=== PATIENT | female | born 1985 | race Caucasian/White ===

== ENCOUNTER 2017-04-15 12:34 | Emergency (ER) | payer MEDICAID ==
[~2017-04-15] VITALS: Ht 167.6 cm; Wt 63.6 kg
[~2017-04-15 12:34] MED LIST: AMBIEN 10MG10 MG PO; ATIVAN 0.50.5 MG/TAB PO; BUSPAR5 MG PO; CELEBREX 200MG200 MG PO; CELEBREX50 MG; CIPRO 500MG TA500 MG PO; CLEOCIN HCL300 MG PO; CYMBALTA 20MG20 MG PO; CYMBALTA 60MG60 MG PO; DEPO-PROVER150 MG/ML IM; DOXYCYCLINE 10100 MG PO; FIORICET 325 MG1 TA1 PO; FLEXERIL 1010 MG/TAB PO; GRALISE600 MG PO; IMITREX 25MG TA25 MG PO; IMITREX100 MG PO; IMITREX50 MG PO; KLONOPIN 1MG1 MG PO; LAXATIVE FOR WOM5 MG PO; LEXAPRO 5MG5 MG; LEXAPRO20 MG PO; LORTAB 5/500 501 TAB PO; METRONIDAZOLE500 MG PO; MIGRAINE MED; MOBIC15 MG PO; MOTRIN 800800 MG/TAB PO; NAPROSYN500 MG PO; NO HOME MEDICATIONS; NORCO 325 MG-51 TAB PO; NORCO 325 MG-7.1 TAB; NORCO 325 MG-7.1 TAB PO; PERCOCET 325 MG1 TA2 PO; PHENERGAN 25 TA25 MG PO; PRENATAL1 TA1 PO; PRENATAL1 TA3 PO; PROMETHAZINE12.5 M5 PO; PROVENTIL0.09 MG/A1 IH; REGLAN 10MG10 MG/TAB PO; RELAFEN750 MG PO; RYBIX ODT50 MG PO; SAVELLA100 MG PO; SAVELLA50 MG PO; TEGRETOL 1100 MG/TAB PO; ULTRAM 50MG TAB50 MG PO; VALIUM 5MG T5 MG/TAB PO; VENTOLIN0.09 MG IH; ZITHROMAX 250M250 MG PO; ZOFRAN 4MG T4 MG/TAB PO; ZOFRAN8 MG PO; [UNRECOGNIZED DRUG - REMARK]
[2017-04-15 12:50] VITALS: BP 127/71; PULSE 94; TEMP 99
[2017-04-15] MEDS ORDERED: CYMBALTA 60MG60 MG PO (13:17)
[2017-04-15] MEDS ORDERED: PROAIR HFA0.09 MG/AC IH (13:17)
[2017-04-15] MEDS ORDERED: TOPAMAX 25MG25 M1 PO ×2 (13:17)
== END 2017-04-15 14:05 | disposition home or self-care (01) ==
LOC: COL.ER 12:34
DX: S90.32XA Contusion of left foot, initial encounter (principal); G43.909 Migraine, unspecified, not intractable, without status migrainosus; F17.210 Nicotine dependence, cigarettes, uncomplicated; W22.8XXA Striking against or struck by other objects, initial encounter

== ENCOUNTER 2017-04-24 08:37 | Emergency (ER) | payer BC, MEDICAID ==
[~2017-04-24] VITALS: Ht 167.6 cm; Wt 63.6 kg
[~2017-04-24 08:37] MED LIST changes: +PROAIR HFA0.09 MG/AC IH; +TOPAMAX 25MG25 M1 PO
[2017-04-24 08:40] VITALS: BP 126/79; PULSE 86; TEMP 99
== END 2017-04-24 09:58 | disposition home or self-care (01) ==
LOC: COL.ER 08:37
DX: S90.122A Contusion of left lesser toe(s) without damage to nail, initial encounter (principal); F31.9 Bipolar disorder, unspecified; F17.210 Nicotine dependence, cigarettes, uncomplicated; Z98.51 Tubal ligation status; W22.03XA Walked into furniture, initial encounter

== ENCOUNTER 2017-10-08 13:22 | Emergency (ER) | payer MEDICAID ==
[~2017-10-08] VITALS: Ht 170.2 cm; Wt 68.2 kg
[2017-10-08 13:24] VITALS: TEMP 98.2
[2017-10-08 16:32] VITALS: BP 130/89; PULSE 90
== END 2017-10-08 16:32 | disposition home or self-care (01) ==
LOC: COL.ER 13:22
DX: G43.909 Migraine, unspecified, not intractable, without status migrainosus (principal); Z98.51 Tubal ligation status
CPT/HCPCS: J1170; J1200; J1885; J2765; J7030

== ENCOUNTER 2017-10-21 17:26 | Emergency (ER) | payer MEDICAID ==
[~2017-10-21] VITALS: Ht 170.2 cm; Wt 65.9 kg
[2017-10-21 17:32] VITALS: TEMP 97.5
[2017-10-21 18:26] LABS: BASO # 0.1 (0.0-0.2); EOS # 0.3 (0.0-0.7); EOS % 3.5 % (0-4.0); GRAN # 4.3 (1.4-6.5); GRAN % 51.4 % (42.2-75.2); HEMOGLOBIN 10.8 g/dl (12.5-16.0); LYMPH # 3.2 (1.2-3.4); LYMPH % 37.5 % (20.0-51.0); MEAN CELL VOLUME 85 fl (80.0-100.0); MEAN CORPUSCULAR HEMOGLOBIN 28 pg (27.0-31.0); MEAN CORPUSCULAR HGB CONC 33 g/dl (33.0-37.0); MEAN PLATELET VOLUME 8.5 fl (7.4-10.4); MONO # 0.5 (0.1-0.6); MONO % 6.4 % (1.7-9.3); PLATELET COUNT 258 K/mm3 (130-400); REDCELL DISTRIBUTION WIDTH-CV 14.8 % (11.5-14.5)
[2017-10-21 18:30] LABS: HEMATOCRIT 33.2 % (37.0-47.0)
[2017-10-21 18:38] LABS: ALBUMIN 3.6 gm/dL (3.5-5.0); BILIRUBIN,TOTAL 0.4 mg/dL (0.0-1.0); CALCIUM 9.2 mg/dL (8.4-10.2); CREATININE, serum 0.53 mg/dL (0.52-1.25); POTASSIUM 3.7 mmol/L (3.4-5.0); TOTAL PROTEIN 7.1 gm/dL (6.4-8.2)
[2017-10-21 19:19] VITALS: BP 130/80; PULSE 87
== END 2017-10-21 19:21 | disposition home or self-care (01) ==
LOC: COL.ER 17:26
PROVIDERS: Physician Assistant
DX: G43.909 Migraine, unspecified, not intractable, without status migrainosus (principal); M79.7 Fibromyalgia; F17.210 Nicotine dependence, cigarettes, uncomplicated
CPT/HCPCS: J1100; J1200; J1885; J2765; J7030

== ENCOUNTER 2017-10-25 11:23 | Emergency (ER) | payer MEDICAID ==
[~2017-10-25] VITALS: Ht 170.2 cm; Wt 63.6 kg
[2017-10-25 11:35] VITALS: BP 157/100; TEMP 98.5
[2017-10-25 13:51] VITALS: PULSE 67
== END 2017-10-25 13:52 | disposition home or self-care (01) ==
LOC: COL.ER 11:23
DX: G43.909 Migraine, unspecified, not intractable, without status migrainosus (principal); F17.210 Nicotine dependence, cigarettes, uncomplicated
CPT/HCPCS: J0595; J0780

== ENCOUNTER 2018-03-23 17:47 | Emergency (ER) | payer MEDICAID ==
[~2018-03-23] VITALS: Ht 170.2 cm; Wt 63.6 kg
[2018-03-23 17:51] VITALS: TEMP 99.2
[2018-03-23] MEDS ORDERED: MAXALT10 MG (18:44)
[2018-03-23] MEDS ORDERED: ZOFRAN 4MG T4 MG/TAB PO (18:44)
[2018-03-23] MEDS ORDERED: DEPAKOTE ER 50500 MG PO (18:45)
[2018-03-23 18:47] LABS: COLLECTION METHOD CLEAN CATCH
[2018-03-23 18:56] LABS: PH 8 (5-8); SQUAMOUS EPITHELIAL 0-2 /hpf; URINE APPEARANCE Clear; URINE BACTERIA Rare /hpf; URINE BILIRUBIN Negative (NEGATIVE); URINE BLOOD 3+ (NEGATIVE); URINE COLOR Yellow; URINE GLUCOSE Negative (NEGATIVE); URINE KETONE Negative (NEGATIVE); URINE LEUKOCYTE ESTERASE Negative (NEGATIVE); URINE NITRATE Negative (NEGATIVE); URINE PROTEIN(semi-quant) 1+ (NEGATIVE); URINE RBC 0-2 /hpf; URINE UROBILINOGEN Negative (NEGATIVE)
[2018-03-23 19:23] LABS: BASO # 0.1 (0.0-0.2); BASO % 1.1 % (0.0-2.0); EOS # 0.1 (0.0-0.7); GRAN # 3.9 (1.4-6.5); GRAN % 54.1 % (42.2-75.2); LYMPH # 2.6 (1.2-3.4); LYMPH % 36.5 % (20.0-51.0); MEAN CELL VOLUME 86 fl (80.0-100.0); MEAN CORPUSCULAR HEMOGLOBIN 29 pg (27.0-31.0); MEAN CORPUSCULAR HGB CONC 34 g/dl (33.0-37.0); MEAN PLATELET VOLUME 8.5 fl (7.4-10.4); MONO # 0.4 (0.1-0.6); PLATELET COUNT 388 K/mm3 (130-400); RED BLOOD COUNT 4.15 M/mm3 (4.10-5.30); REDCELL DISTRIBUTION WIDTH-CV 13.2 % (11.5-14.5)
[2018-03-23 19:24] LABS: HEMATOCRIT 35.6 % (37.0-47.0)
[2018-03-23 19:36] LABS: ALANINE AMINOTRANSFERASE 22 U/L (9-52); ALBUMIN 4.3 gm/dL (3.5-5.0); ALKALINE PHOSPHATASE 70 U/L (50-136); ANION GAP 4 mmol/L (7-16); AST,SGOT 18 U/L (15-37); BILIRUBIN,TOTAL 0.2 mg/dL (0.0-1.0); BLOOD UREA NITROGEN 5 mg/dL (7-17); C-REACTIVE PROTEIN < 0.5 mg/dL (0.0-0.9); CALCIUM 9.1 mg/dL (8.4-10.2); CARBON DIOXIDE 27 mmol/L (22-30); CHLORIDE 109 mmol/L (98-107); CREATINE KINASE 38 U/L (30-135); CREATININE, serum 0.62 mg/dL (0.52-1.25); GLUCOSE 96 mg/dL (74-106); POTASSIUM 3.8 mmol/L (3.4-5.0); SODIUM 141 mmol/L (137-145); TOTAL PROTEIN 7.7 gm/dL (6.4-8.2)
[2018-03-23 20:50] VITALS: BP 115/71; PULSE 75
== END 2018-03-23 20:50 | disposition home or self-care (01) ==
LOC: COL.ER 17:47
PROVIDERS: Nurse Practitioner
DX: M54.5 Low back pain (principal); M25.572 Pain in left ankle and joints of left foot; M25.571 Pain in right ankle and joints of right foot; G89.29 Other chronic pain; J45.909 Unspecified asthma, uncomplicated; M79.7 Fibromyalgia; F31.9 Bipolar disorder, unspecified; G43.909 Migraine, unspecified, not intractable, without status migrainosus; G40.909 Epilepsy, unspecified, not intractable, without status epilepticus; F17.210 Nicotine dependence, cigarettes, uncomplicated; F12.10 Cannabis abuse, uncomplicated; Z79.899 Other long term (current) drug therapy
CPT/HCPCS: J1170; J1885; J2060; J2405; J7030

== ENCOUNTER 2018-04-01 13:20 | Emergency (ER) | payer MEDICAID ==
[~2018-04-01] VITALS: Ht 167.6 cm; Wt 80.3 kg
[~2018-04-01 13:20] MED LIST changes: +DEPAKOTE ER 50500 MG PO; +MAXALT10 MG PO
[2018-04-01 13:22] VITALS: TEMP 98.1
[2018-04-01 16:36] VITALS: BP 106/69; PULSE 72
== END 2018-04-01 16:40 | disposition home or self-care (01) ==
LOC: COL.ER 13:20
DX: G43.909 Migraine, unspecified, not intractable, without status migrainosus (principal); F17.210 Nicotine dependence, cigarettes, uncomplicated; F12.90 Cannabis use, unspecified, uncomplicated; M79.7 Fibromyalgia; Z90.49 Acquired absence of other specified parts of digestive tract; Z98.51 Tubal ligation status
CPT/HCPCS: J1200; J1630; J1885; J2550; J7030

== ENCOUNTER → 2018-04-05 | Outpatient (CLI) | payer MEDICAID ==
[~2018-04-05] MED LIST changes: +NATURAL MAGNES200 MG PO; +PROFERRIN-FORTE1 TAB PO
== END ==
LOC: COL.RAD 08:27
DX: E34.8 Other specified endocrine disorders (principal); R41.3 Other amnesia
CPT/HCPCS: A9585

== ENCOUNTER 2018-04-07 07:36 | Emergency (ER) | payer MEDICAID ==
[~2018-04-07] VITALS: Ht 167.6 cm; Wt 72.7 kg
[~2018-04-07 07:36] MED LIST changes: -NATURAL MAGNES200 MG PO; -PROFERRIN-FORTE1 TAB PO
[2018-04-07 07:40] VITALS: TEMP 97.3
[2018-04-07] MEDS ORDERED: PROFERRIN-FORTE1 TAB PO (07:50)
[2018-04-07] MEDS ORDERED: NATURAL MAGNES200 MG PO (07:50)
[2018-04-07 09:30] LABS: COLLECTION METHOD CLEAN CATCH
[2018-04-07 09:37] LABS: PH 8 (5-8); SQUAMOUS EPITHELIAL 0-2 /hpf; URINE APPEARANCE Clear; URINE BACTERIA None Seen /hpf; URINE BILIRUBIN Negative (NEGATIVE); URINE BLOOD 1+ (NEGATIVE); URINE COLOR Straw; URINE GLUCOSE Negative (NEGATIVE); URINE KETONE Negative (NEGATIVE); URINE LEUKOCYTE ESTERASE Negative (NEGATIVE); URINE NITRATE Negative (NEGATIVE); URINE PROTEIN(semi-quant) Negative (NEGATIVE); URINE RBC 0-2 /hpf; URINE UROBILINOGEN Negative (NEGATIVE)
[2018-04-07 11:26] VITALS: BP 135/87; PULSE 88
== END 2018-04-07 11:34 | disposition home or self-care (01) ==
LOC: COL.ER 07:36
PROVIDERS: Emergency Medicine
DX: G89.29 Other chronic pain (principal); M54.5 Low back pain; M79.7 Fibromyalgia; Z98.51 Tubal ligation status; Z90.49 Acquired absence of other specified parts of digestive tract
CPT/HCPCS: J1170; J1885; J2060; J7030

== ENCOUNTER 2018-04-11 17:14 | Emergency (ER) | payer MEDICAID ==
[~2018-04-11] VITALS: Ht 167.6 cm; Wt 81.8 kg
[~2018-04-11 17:14] MED LIST changes: +NATURAL MAGNES200 MG PO; +PROFERRIN-FORTE1 TAB PO
[2018-04-11 18:10] LABS: BASO # 0.1 (0.0-0.2); BASO % 0.9 % (0.0-2.0); EOS # 0.1 (0.0-0.7); EOS % 1.5 % (0-4.0); GRAN # 4.9 (1.4-6.5); GRAN % 63.2 % (42.2-75.2); HEMOGLOBIN 11.7 g/dl (12.5-16.0); LYMPH # 2.2 (1.2-3.4); LYMPH % 27.7 % (20.0-51.0); MEAN CELL VOLUME 87 fl (80.0-100.0); MEAN CORPUSCULAR HEMOGLOBIN 29 pg (27.0-31.0); MEAN CORPUSCULAR HGB CONC 33 g/dl (33.0-37.0); MEAN PLATELET VOLUME 8.8 fl (7.4-10.4); MONO # 0.5 (0.1-0.6); MONO % 6.6 % (1.7-9.3); PLATELET COUNT 331 K/mm3 (130-400); RED BLOOD COUNT 4.09 M/mm3 (4.10-5.30); REDCELL DISTRIBUTION WIDTH-CV 13.3 % (11.5-14.5)
[2018-04-11 18:13] LABS: HEMATOCRIT 35.4 % (37.0-47.0)
[2018-04-11 18:21] LABS: ALANINE AMINOTRANSFERASE 40 U/L (9-52); ALBUMIN 4.2 gm/dL (3.5-5.0); ALKALINE PHOSPHATASE 86 U/L (50-136); ANION GAP 6 mmol/L (7-16); AST,SGOT 28 U/L (15-37); BILIRUBIN,TOTAL 0.4 mg/dL (0.0-1.0); BLOOD UREA NITROGEN 4 mg/dL (7-17); CALCIUM 9.6 mg/dL (8.4-10.2); CARBON DIOXIDE 27 mmol/L (22-30); CHLORIDE 108 mmol/L (98-107); CREATININE, serum 0.56 mg/dL (0.52-1.25); GLUCOSE 99 mg/dL (74-106); SODIUM 140 mmol/L (137-145); TOTAL PROTEIN 7.6 gm/dL (6.4-8.2)
[2018-04-11 18:25] LABS: C-REACTIVE PROTEIN < 0.5 mg/dL (0.0-0.9)
[2018-04-11 19:53] VITALS: BP 163/107; PULSE 80; TEMP 97.9
== END 2018-04-11 20:01 | disposition home or self-care (01) ==
LOC: COL.ER 17:14
PROVIDERS: Nurse Practitioner
DX: S09.90XA Unspecified injury of head, initial encounter (principal); G43.909 Migraine, unspecified, not intractable, without status migrainosus; F31.9 Bipolar disorder, unspecified; J45.909 Unspecified asthma, uncomplicated; M79.7 Fibromyalgia; F17.210 Nicotine dependence, cigarettes, uncomplicated; F12.90 Cannabis use, unspecified, uncomplicated; W19.XXXA Unspecified fall, initial encounter
CPT/HCPCS: J1200; J1885; J2060; J2765; J7030

== ENCOUNTER 2018-04-16 13:18 | Emergency (ER) | payer MEDICAID ==
[~2018-04-16] VITALS: Ht 167.6 cm; Wt 74.8 kg
[2018-04-16 13:23] VITALS: TEMP 98.8
[2018-04-16] MEDS ORDERED: TYLENOL 325MG325 MG PO (13:28)
[2018-04-16] MEDS ORDERED: BENADRYL50 MG PO (13:29)
[2018-04-16] MEDS ORDERED: MOTRIN 200200 MG/TAB PO (13:29)
[2018-04-16 16:05] VITALS: BP 151/89; PULSE 89
== END 2018-04-16 16:10 | disposition home or self-care (01) ==
LOC: COL.ER 13:18
DX: G43.909 Migraine, unspecified, not intractable, without status migrainosus (principal); M54.32 Sciatica, left side; M54.16 Radiculopathy, lumbar region; M79.7 Fibromyalgia; F17.210 Nicotine dependence, cigarettes, uncomplicated; F12.90 Cannabis use, unspecified, uncomplicated; F31.9 Bipolar disorder, unspecified
CPT/HCPCS: J1170; J1630; J1885

== ENCOUNTER 2018-05-12 01:05 | Emergency (ER) | payer MEDICAID ==
[~2018-05-12] VITALS: Ht 170.2 cm; Wt 68.2 kg
[~2018-05-12 01:05] MED LIST changes: +BENADRYL50 MG PO; +MOTRIN 200200 MG/TAB PO; +TYLENOL 325MG325 MG PO
[2018-05-12 01:13] VITALS: TEMP 98
[2018-05-12] MEDS ORDERED: INDERAL40 MG PO (04:39)
[2018-05-12 04:42] VITALS: BP 174/98; PULSE 86
== END 2018-05-12 04:54 | disposition home or self-care (01) ==
LOC: COL.ER 01:05
DX: G43.909 Migraine, unspecified, not intractable, without status migrainosus (principal); R03.0 Elevated blood-pressure reading, without diagnosis of hypertension; Z98.51 Tubal ligation status
CPT/HCPCS: J0780; J1200; J1885; J7030

== ENCOUNTER 2018-05-19 10:00 | Emergency (ER) | payer MEDICAID ==
[~2018-05-19] VITALS: Ht 167.6 cm; Wt 73.6 kg
[~2018-05-19 10:00] MED LIST changes: +INDERAL40 MG PO
[2018-05-19 10:06] VITALS: TEMP 98.6
[2018-05-19 10:51] LABS: BASO # 0.1 (0.0-0.2); BASO % 0.8 % (0.0-2.0); EOS # 0.1 (0.0-0.7); EOS % 1.2 % (0-4.0); GRAN # 5.8 (1.4-6.5); GRAN % 69.8 % (42.2-75.2); HEMATOCRIT 38.7 % (37.0-47.0); HEMOGLOBIN 12.7 g/dl (12.5-16.0); LYMPH # 1.9 (1.2-3.4); LYMPH % 22.6 % (20.0-51.0); MEAN CELL VOLUME 88 fl (80.0-100.0); MEAN CORPUSCULAR HEMOGLOBIN 29 pg (27.0-31.0); MEAN CORPUSCULAR HGB CONC 33 g/dl (33.0-37.0); MEAN PLATELET VOLUME 8.5 fl (7.4-10.4); MONO # 0.5 (0.1-0.6); MONO % 5.4 % (1.7-9.3); PLATELET COUNT 358 K/mm3 (130-400); RED BLOOD COUNT 4.42 M/mm3 (4.10-5.30); REDCELL DISTRIBUTION WIDTH-CV 13.7 % (11.5-14.5)
[2018-05-19 10:57] LABS: ALANINE AMINOTRANSFERASE 10 U/L (9-52); ALBUMIN 4.3 gm/dL (3.5-5.0); ALKALINE PHOSPHATASE 81 U/L (50-136); ANION GAP 5 mmol/L (7-16); AST,SGOT 17 U/L (15-37); BILIRUBIN,TOTAL 0.4 mg/dL (0.0-1.0); BLOOD UREA NITROGEN 4 mg/dL (7-17); CALCIUM 9.6 mg/dL (8.4-10.2); CARBON DIOXIDE 29 mmol/L (22-30); CHLORIDE 108 mmol/L (98-107); CREATININE, serum 0.53 mg/dL (0.52-1.25); GLUCOSE 115 mg/dL (74-106); POTASSIUM 3.8 mmol/L (3.4-5.0); SODIUM 141 mmol/L (137-145); TOTAL PROTEIN 7.7 gm/dL (6.4-8.2)
[2018-05-19 11:13] LABS: TROPONIN-I < 0.012 ng/mL (0.000-0.034)
[2018-05-19 11:45] VITALS: BP 159/94; PULSE 72
[2018-05-19] MEDS ORDERED: HCTZ12.5TAB PO (11:45)
== END 2018-05-19 12:14 | disposition home or self-care (01) ==
LOC: COL.ER 10:00
PROVIDERS: Nurse Practitioner
DX: I10 Essential (primary) hypertension (principal); R07.89 Other chest pain; J45.909 Unspecified asthma, uncomplicated; G43.909 Migraine, unspecified, not intractable, without status migrainosus; F31.9 Bipolar disorder, unspecified; Z90.49 Acquired absence of other specified parts of digestive tract; Z98.51 Tubal ligation status; F17.210 Nicotine dependence, cigarettes, uncomplicated; F12.90 Cannabis use, unspecified, uncomplicated

== ENCOUNTER → 2018-05-23 | Outpatient (CLI) | payer MEDICAID ==
[~2018-05-23] MED LIST changes: +HCTZ12.5TAB PO
== END ==
LOC: COL.RAD 11:54
DX: M54.41 Lumbago with sciatica, right side (principal); M54.42 Lumbago with sciatica, left side; N39.42 Incontinence without sensory awareness

== ENCOUNTER 2018-09-30 20:06 | Emergency (ER) | payer MEDICAID ==
[~2018-09-30] VITALS: Ht 162.6 cm; Wt 82.7 kg
[2018-09-30 20:09] VITALS: TEMP 97
[2018-09-30 22:27] VITALS: BP 121/97; PULSE 85
== END 2018-09-30 22:27 | disposition home or self-care (01) ==
LOC: COL.ER 20:06
DX: G43.909 Migraine, unspecified, not intractable, without status migrainosus (principal); I10 Essential (primary) hypertension; M79.7 Fibromyalgia; F17.210 Nicotine dependence, cigarettes, uncomplicated
CPT/HCPCS: J1170; J1200; J1885; J2060; J2405

== ENCOUNTER 2019-02-19 19:55 | Emergency (ER) | payer SELFPAY ==
[~2019-02-19] VITALS: Ht 167.6 cm; Wt 63.6 kg
[2019-02-19 19:59] VITALS: TEMP 98.1
[2019-02-19 20:57] LABS: COLLECTION METHOD CLEAN CATCH
[2019-02-19 21:04] LABS: PH 7 (5-8); SQUAMOUS EPITHELIAL 0-2 /hpf; URINE APPEARANCE Clear; URINE BACTERIA Rare /hpf; URINE BILIRUBIN Negative (NEGATIVE); URINE BLOOD Negative (NEGATIVE); URINE COLOR Straw; URINE GLUCOSE Negative (NEGATIVE); URINE KETONE Negative (NEGATIVE); URINE LEUKOCYTE ESTERASE Negative (NEGATIVE); URINE NITRATE Negative (NEGATIVE); URINE PROTEIN(semi-quant) Negative (NEGATIVE); URINE RBC 0-2 /hpf; URINE UROBILINOGEN Negative (NEGATIVE)
[2019-02-19 21:10] LABS: TRICYCLIC ANTIDEPRESS URINE NEGATIVE
[2019-02-19 22:26] VITALS: BP 110/81; PULSE 82
== END 2019-02-19 22:28 | disposition home or self-care (01) ==
LOC: COL.ER 19:55
PROVIDERS: Nurse Practitioner
DX: S16.1XXA Strain of muscle, fascia and tendon at neck level, initial encounter (principal); S39.012A Strain of muscle, fascia and tendon of lower back, initial encounter; S20.219A Contusion of unspecified front wall of thorax, initial encounter; J45.909 Unspecified asthma, uncomplicated; I10 Essential (primary) hypertension; F31.9 Bipolar disorder, unspecified; F17.210 Nicotine dependence, cigarettes, uncomplicated; Z79.1 Long term (current) use of non-steroidal anti-inflammatories (NSAID); W10.9XXA Fall (on) (from) unspecified stairs and steps, initial encounter; Y92.009 Unspecified place in unspecified non-institutional (private) residence as the place of occurrence of the external cause
CPT/HCPCS: J1885; J2360

== ENCOUNTER 2019-03-02 00:58 | Emergency (ER) | payer SELFPAY ==
[~2019-03-02] VITALS: Ht 157.5 cm; Wt 81.8 kg
[2019-03-02 01:02] VITALS: TEMP 97.8
[2019-03-02 01:16] LABS: BASO # 0.1 (0.0-0.2); BASO % 1.2 % (0.0-2.0); EOS # 0.5 (0.0-0.7); EOS % 5.4 % (0-4.0); GRAN # 3.2 (1.4-6.5); GRAN % 38.4 % (42.2-75.2); HEMATOCRIT 35.3 % (37.0-47.0); HEMOGLOBIN 11.6 g/dl (12.5-16.0); LYMPH # 3.9 (1.2-3.4); LYMPH % 47.3 % (20.0-51.0); MEAN CELL VOLUME 89 fl (80.0-100.0); MEAN CORPUSCULAR HEMOGLOBIN 29 pg (27.0-31.0); MEAN CORPUSCULAR HGB CONC 33 g/dl (33.0-37.0); MEAN PLATELET VOLUME 8.6 fl (7.4-10.4); MONO # 0.6 (0.1-0.6); MONO % 7.3 % (1.7-9.3); PLATELET COUNT 353 K/mm3 (130-400); RED BLOOD COUNT 3.96 M/mm3 (4.10-5.30); REDCELL DISTRIBUTION WIDTH-CV 11.8 % (11.5-14.5)
[2019-03-02 01:27] LABS: ACETAMINOPHEN 16 ug/mL (10-30); ALANINE AMINOTRANSFERASE 15 U/L (9-52); ALBUMIN 4.3 gm/dL (3.5-5.0); ALCOHOL(ethanol),MEDICAL < 10 mg/dL; ALKALINE PHOSPHATASE 73 U/L (50-136); ANION GAP 11 mmol/L (7-16); AST,SGOT 22 U/L (15-37); BILIRUBIN,TOTAL 0.2 mg/dL (0.0-1.0); BLOOD UREA NITROGEN 6 mg/dL (7-17); CARBON DIOXIDE 27 mmol/L (22-30); CHLORIDE 101 mmol/L (98-107); CREATININE, serum 0.66 (0.52-1.25); GLUCOSE 110 mg/dL (74-106); SALICYLATE < 1.0 mg/dL; SODIUM 139 mmol/L (137-145); TOTAL PROTEIN 7.6 gm/dL (6.4-8.2)
[2019-03-02 04:15] VITALS: BP 106/76; PULSE 72
[2019-03-03] MEDS ORDERED: NORVASC 5MG5 MG/TAB PO (19:27)
[2019-03-03] MEDS ORDERED: PAMELOR 25MG25 MG PO (19:27)
[2019-03-03] MEDS ORDERED: NORCO 325 MG-51 TAB PO (21:25)
[2019-03-03] MEDS ORDERED: FLEXERIL5 MG PO (21:25)
== END 2019-03-02 04:15 | disposition home or self-care (01) ==
LOC: COL.ER 00:58
PROVIDERS: Emergency Medicine
DX: E87.6 Hypokalemia (principal); F32.9 Major depressive disorder, single episode, unspecified; Y04.0XXA Assault by unarmed brawl or fight, initial encounter
CPT/HCPCS: J7030; Q9967

== ENCOUNTER 2019-03-03 19:13 | Emergency (ER) | payer SELFPAY ==
[~2019-03-03] VITALS: Ht 167.6 cm; Wt 63.6 kg
[2019-03-03 19:13] VITALS: TEMP 98.3
[2019-03-03] MEDS ORDERED: PAMELOR 25MG25 MG PO (19:27)
[2019-03-03] MEDS ORDERED: NORVASC 5MG5 MG/TAB PO (19:27)
[2019-03-03 20:42] LABS: COLLECTION METHOD CLEAN CATCH
[2019-03-03 20:52] LABS: MUCOUS Present /lpf; PH 7 (5-8); URINE APPEARANCE Cloudy; URINE BACTERIA Rare /hpf; URINE BILIRUBIN Negative (NEGATIVE); URINE BLOOD 3+ (NEGATIVE); URINE COLOR Yellow; URINE GLUCOSE Negative (NEGATIVE); URINE KETONE Negative (NEGATIVE); URINE LEUKOCYTE ESTERASE Trace (NEGATIVE); URINE NITRATE Negative (NEGATIVE); URINE PROTEIN(semi-quant) Negative (NEGATIVE); URINE UROBILINOGEN Negative (NEGATIVE)
[2019-03-03] MEDS ORDERED: NORCO 325 MG-51 TAB PO (21:25)
[2019-03-03] MEDS ORDERED: FLEXERIL5 MG PO (21:25)
[2019-03-03 21:31] VITALS: BP 112/74; PULSE 65
== END 2019-03-03 21:35 | disposition home or self-care (01) ==
LOC: COL.ER 19:13
PROVIDERS: Emergency Medicine
DX: M54.5 Low back pain (principal); M79.7 Fibromyalgia; G40.909 Epilepsy, unspecified, not intractable, without status epilepticus; F17.210 Nicotine dependence, cigarettes, uncomplicated; W19.XXXA Unspecified fall, initial encounter; Z98.51 Tubal ligation status
CPT/HCPCS: J1885; J2405; J3010

== ENCOUNTER 2019-03-05 22:58 | Emergency (ER) | payer SELFPAY ==
[~2019-03-05] VITALS: Ht 167.6 cm; Wt 63.6 kg
[~2019-03-05 22:58] MED LIST changes: +FLEXERIL5 MG PO; +NORVASC 5MG5 MG/TAB PO; +PAMELOR 25MG25 MG PO
[2019-03-05 22:59] VITALS: BP 128/94; TEMP 97.9
[2019-03-06 00:57] VITALS: PULSE 68
== END 2019-03-06 00:57 | disposition home or self-care (01) ==
LOC: COL.ER 22:58
DX: S16.1XXA Strain of muscle, fascia and tendon at neck level, initial encounter (principal); M25.562 Pain in left knee; I10 Essential (primary) hypertension; F17.210 Nicotine dependence, cigarettes, uncomplicated; M79.7 Fibromyalgia; W10.9XXA Fall (on) (from) unspecified stairs and steps, initial encounter; Y92.009 Unspecified place in unspecified non-institutional (private) residence as the place of occurrence of the external cause

== ENCOUNTER 2019-04-04 23:51 | Emergency (ER) | payer SELFPAY ==
[~2019-04-04] VITALS: Ht 167.6 cm; Wt 59.1 kg
[2019-04-04 23:52] VITALS: TEMP 97.6
[2019-04-05 01:46] LABS: COLLECTION METHOD CLEAN CATCH
[2019-04-05 01:55] LABS: AMORPHOUS CRYSTAL Present /uL; MUCOUS Present /lpf; PH 5 (5-8); SQUAMOUS EPITHELIAL 0-2 /hpf; URINE APPEARANCE Hazy; URINE BACTERIA Rare /hpf; URINE BILIRUBIN Negative (NEGATIVE); URINE BLOOD 1+ (NEGATIVE); URINE COLOR Yellow; URINE GLUCOSE Negative (NEGATIVE); URINE KETONE Negative (NEGATIVE); URINE LEUKOCYTE ESTERASE Negative (NEGATIVE); URINE NITRATE Positive (NEGATIVE); URINE PROTEIN(semi-quant) Negative (NEGATIVE); URINE RBC 0-2 /hpf; URINE UROBILINOGEN Negative (NEGATIVE)
[2019-04-05 02:09] VITALS: BP 112/61; PULSE 73
[2019-04-06] MEDS ORDERED: CEPHALEXIN500 M1 PO (09:08)
== END 2019-04-05 02:10 | disposition home or self-care (01) ==
LOC: COL.ER 23:51
PROVIDERS: Emergency Medicine
DX: S80.02XA Contusion of left knee, initial encounter (principal); M79.7 Fibromyalgia; F17.210 Nicotine dependence, cigarettes, uncomplicated; Z98.51 Tubal ligation status; W01.0XXA Fall on same level from slipping, tripping and stumbling without subsequent striking against object, initial encounter; Y92.009 Unspecified place in unspecified non-institutional (private) residence as the place of occurrence of the external cause
CPT/HCPCS: J1885

== ENCOUNTER 2019-09-23 18:41 | Emergency (ER) | payer MEDICAID ==
[~2019-09-23] VITALS: Ht 167.6 cm; Wt 63.6 kg
[~2019-09-23 18:41] MED LIST changes: +CEPHALEXIN500 M1 PO
[2019-09-23 18:45] VITALS: TEMP 98.1
[2019-09-23] MEDS ORDERED: FLEXERIL 1010 MG/TAB PO (19:23)
[2019-09-23] MEDS ORDERED: MOTRIN 600600 MG/TAB PO (19:34)
[2019-09-23 19:45] VITALS: BP 132/70; PULSE 68
--- NOTE | 2019-09-24 08:49 | NUR ---
BETSY received a consult for patient at 1905. The patient discharged from the ED. BETSY attempted to contact the patient to follow up. BETSY left her a voicemail.
== END 2019-09-23 19:53 | disposition home or self-care (01) ==
LOC: COL.ER 18:41
DX: M25.512 Pain in left shoulder (principal); F31.9 Bipolar disorder, unspecified; G43.909 Migraine, unspecified, not intractable, without status migrainosus; F17.210 Nicotine dependence, cigarettes, uncomplicated; W01.198A Fall on same level from slipping, tripping and stumbling with subsequent striking against other object, initial encounter; Y92.009 Unspecified place in unspecified non-institutional (private) residence as the place of occurrence of the external cause
CPT/HCPCS: J1885

== ENCOUNTER 2019-10-20 19:21 | Emergency (ER) | payer MEDICAID ==
[~2019-10-20] VITALS: Ht 167.6 cm; Wt 63.6 kg
[~2019-10-20 19:21] MED LIST changes: +MOTRIN 600600 MG/TAB PO
[2019-10-20 19:29] VITALS: TEMP 98
[2019-10-20] MEDS ORDERED: NORVASC 5MG5 MG/TAB PO (20:56)
[2019-10-20] MEDS ORDERED: IBU800 M1 PO (21:16)
[2019-10-20 21:30] VITALS: BP 146/73; PULSE 73
== END 2019-10-20 21:30 | disposition home or self-care (01) ==
LOC: COL.ER 19:21
DX: S46.012A Strain of muscle(s) and tendon(s) of the rotator cuff of left shoulder, initial encounter (principal); I10 Essential (primary) hypertension; F17.210 Nicotine dependence, cigarettes, uncomplicated; Z79.899 Other long term (current) drug therapy; X50.0XXA Overexertion from strenuous movement or load, initial encounter
CPT/HCPCS: J2550; J3010

== ENCOUNTER 2019-11-22 02:33 | Emergency (ER) | payer MEDICAID ==
[~2019-11-22] VITALS: Ht 167.6 cm; Wt 63.6 kg
[~2019-11-22 02:33] MED LIST changes: +IBU800 M1 PO
[2019-11-22 04:49] VITALS: BP 127/74; PULSE 75; TEMP 97.8
[2019-11-23] MEDS ORDERED: IBU400 MG PO (22:45)
== END 2019-11-22 04:52 | disposition home or self-care (01) ==
LOC: COL.ER 02:33
DX: M25.512 Pain in left shoulder (principal); M79.7 Fibromyalgia; F17.210 Nicotine dependence, cigarettes, uncomplicated; W11.XXXA Fall on and from ladder, initial encounter; Y92.009 Unspecified place in unspecified non-institutional (private) residence as the place of occurrence of the external cause
CPT/HCPCS: J1885

== ENCOUNTER 2019-11-23 22:16 | Emergency (ER) | payer MEDICAID ==
[~2019-11-23] VITALS: Ht 167.6 cm; Wt 63.6 kg
[2019-11-23] MEDS ORDERED: IBU400 MG PO (22:45)
[2019-11-23 23:19] VITALS: BP 118/64; PULSE 81; TEMP 97.5
== END 2019-11-23 23:22 | disposition home or self-care (01) ==
LOC: COL.ER 22:16
DX: M54.5 Low back pain (principal); M79.7 Fibromyalgia; M25.512 Pain in left shoulder; G89.29 Other chronic pain; F17.210 Nicotine dependence, cigarettes, uncomplicated; Z79.1 Long term (current) use of non-steroidal anti-inflammatories (NSAID); W10.9XXA Fall (on) (from) unspecified stairs and steps, initial encounter

== ENCOUNTER 2019-12-05 00:38 | Emergency (ER) | payer MEDICAID ==
[~2019-12-05] VITALS: Ht 167.6 cm; Wt 63.6 kg
[~2019-12-05 00:38] MED LIST changes: +IBU400 MG PO
[2019-12-05 00:46] VITALS: BP 121/91; TEMP 98.1
[2019-12-05] MEDS ORDERED: MEDROL 4MG DOSPA4 MG PO (03:19)
[2019-12-05 03:31] VITALS: PULSE 9
== END 2019-12-05 03:38 | disposition home or self-care (01) ==
LOC: COL.ER 00:38
DX: M54.42 Lumbago with sciatica, left side (principal); M25.512 Pain in left shoulder; G89.29 Other chronic pain; F41.9 Anxiety disorder, unspecified; F31.9 Bipolar disorder, unspecified; R40.2412 Glasgow coma scale score 13-15, at arrival to emergency department; W18.2XXA Fall in (into) shower or empty bathtub, initial encounter; Y92.009 Unspecified place in unspecified non-institutional (private) residence as the place of occurrence of the external cause
CPT/HCPCS: J1885; J7512

== ENCOUNTER 2020-01-16 02:21 | Emergency (ER) | payer MEDICAID ==
[~2020-01-16] VITALS: Ht 170.2 cm; Wt 61.4 kg
[~2020-01-16 02:21] MED LIST changes: +MEDROL 4MG DOSPA4 MG PO
[2020-01-16 02:40] VITALS: BP 135/88; TEMP 97.4
[2020-01-16 04:10] VITALS: PULSE 78
== END 2020-01-16 04:10 | disposition home or self-care (01) ==
LOC: COL.ER 02:21
DX: R51 Headache (principal); Z86.69 Personal history of other diseases of the nervous system and sense organs
CPT/HCPCS: J1200; J1790; J1885; J7030

== ENCOUNTER 2020-06-14 04:15 | Emergency (ER) | payer SELFPAY ==
[~2020-06-14] VITALS: Ht 167.6 cm; Wt 59.1 kg
[2020-06-14 04:19] VITALS: TEMP 97.3
[2020-06-14] MEDS ORDERED: NORCO 325 MG-51 TAB PO (04:50)
[2020-06-14] MEDS ORDERED: MEDROL 4MG DOSPA4 MG PO (04:50)
[2020-06-14 05:02] VITALS: BP 116/70; PULSE 78
== END 2020-06-14 05:02 | disposition home or self-care (01) ==
LOC: COL.ER 04:15
DX: M77.8 Other enthesopathies, not elsewhere classified (principal); F17.200 Nicotine dependence, unspecified, uncomplicated; Z90.49 Acquired absence of other specified parts of digestive tract; Z88.6 Allergy status to analgesic agent; Z91.040 Latex allergy status
CPT/HCPCS: J7512

== ENCOUNTER 2020-06-26 14:01 | Emergency (ER) | payer SELFPAY ==
[~2020-06-26] VITALS: Ht 170.2 cm; Wt 63.6 kg
[2020-06-26 14:02] VITALS: TEMP 98.3
[2020-06-26 14:34] LABS: BASO # 0.1 (0.0-0.2); BASO % 0.9 % (0.0-2.0); EOS # 0.3 (0.0-0.7); EOS % 2.8 % (0-4.0); GRAN # 4.8 (1.4-6.5); GRAN % 50.2 % (42.2-75.2); LYMPH # 3.7 (1.2-3.4); LYMPH % 38.7 % (20.0-51.0); MEAN CELL VOLUME 79 fl (80.0-100.0); MEAN CORPUSCULAR HGB CONC 29 g/dl (33.0-37.0); MEAN PLATELET VOLUME 8.1 fl (7.4-10.4); MONO # 0.7 (0.1-0.6); MONO % 6.9 % (1.7-9.3); PLATELET COUNT 460 K/mm3 (130-400); RED BLOOD COUNT 4.29 M/mm3 (4.10-5.30); REDCELL DISTRIBUTION WIDTH-CV 19.7 % (11.5-14.5)
[2020-06-26 14:38] LABS: PROTHROMBIN TIME 11.6 SECONDS (9.7-12.8)
[2020-06-26 14:41] LABS: ALANINE AMINOTRANSFERASE 21 U/L (4-34); ALBUMIN 4.6 gm/dL (3.5-5.0); ALKALINE PHOSPHATASE 67 U/L (50-136); ANION GAP 6 mmol/L (7-16); AST,SGOT 27 U/L (15-37); BILIRUBIN,TOTAL 0.3 mg/dL (0.0-1.0); BLOOD UREA NITROGEN 8 mg/dL (7-17); CALCIUM 9.5 mg/dL (8.4-10.2); CARBON DIOXIDE 29 mmol/L (22-30); CHLORIDE 102 mmol/L (98-107); CREATININE, serum 0.66 (0.52-1.25); GLUCOSE 102 mg/dL (74-106); PARTIAL THROMBOPLASTIN TIME 27.1 SECONDS (26.0-37.0); POTASSIUM 3.9 mmol/L (3.4-5.0); SODIUM 137 mmol/L (137-145); TOTAL PROTEIN 8.1 gm/dL (6.4-8.2)
[2020-06-26 14:42] LABS: HEMATOCRIT 33.7 % (37.0-47.0); HEMOGLOBIN 9.8 g/dl (12.5-16.0); MEAN CORPUSCULAR HEMOGLOBIN 23 pg (27.0-31.0)
[2020-06-26 14:52] LABS: TROPONIN-I < 0.012 ng/mL (0.000-0.035)
[2020-06-26 18:19] VITALS: BP 1423/97; PULSE 82
== END 2020-06-26 18:21 | disposition home or self-care (01) ==
LOC: COL.ER 14:01
PROVIDERS: Family Medicine
DX: F41.0 Panic disorder [episodic paroxysmal anxiety] (principal); R51.9 Headache, unspecified; R07.9 Chest pain, unspecified; G43.909 Migraine, unspecified, not intractable, without status migrainosus; M79.7 Fibromyalgia; F17.210 Nicotine dependence, cigarettes, uncomplicated; Z88.6 Allergy status to analgesic agent
CPT/HCPCS: J0780; J1100; J1885

== ENCOUNTER 2020-06-27 21:25 | Emergency (ER) | payer SELFPAY ==
[~2020-06-27] VITALS: Ht 170.2 cm; Wt 59.1 kg
[2020-06-27 21:45] VITALS: BP 114/73; PULSE 93; TEMP 98.1
[2020-06-28] MEDS ORDERED: MEDROL 4MG DOSPA4 MG PO (04:38)
[2020-06-28] MEDS ORDERED: NAPROSYN500 MG PO (04:38)
== END 2020-06-27 22:15 | disposition left against medical advice (07) ==
LOC: COL.ER 21:25
DX: M25.512 Pain in left shoulder (principal)

== ENCOUNTER 2020-06-28 02:18 | Emergency (ER) | payer SELFPAY ==
[~2020-06-28] VITALS: Ht 170.2 cm; Wt 65.9 kg
[2020-06-28 02:28] VITALS: TEMP 98
[2020-06-28 02:50] LABS: BASO # 0.1 (0.0-0.2); BASO % 0.6 % (0.0-2.0); EOS # 0.1 (0.0-0.7); GRAN # 5.7 (1.4-6.5); LYMPH # 3.7 (1.2-3.4); LYMPH % 35.4 % (20.0-51.0); MEAN CELL VOLUME 80 fl (80.0-100.0); MEAN CORPUSCULAR HGB CONC 29 g/dl (33.0-37.0); MEAN PLATELET VOLUME 8.4 fl (7.4-10.4); MONO # 0.8 (0.1-0.6); MONO % 7.4 % (1.7-9.3); PLATELET COUNT 370 K/mm3 (130-400); RED BLOOD COUNT 3.22 M/mm3 (4.10-5.30); REDCELL DISTRIBUTION WIDTH-CV 19.5 % (11.5-14.5)
[2020-06-28 02:51] LABS: HEMATOCRIT 25.6 % (37.0-47.0); HEMOGLOBIN 7.4 g/dl (12.5-16.0); MEAN CORPUSCULAR HEMOGLOBIN 23 pg (27.0-31.0)
[2020-06-28 03:01] LABS: ALANINE AMINOTRANSFERASE 13 U/L (4-34); ALBUMIN 2.9 gm/dL (3.5-5.0); ALKALINE PHOSPHATASE 40 U/L (50-136); ANION GAP 5 mmol/L (7-16); AST,SGOT 21 U/L (15-37); BILIRUBIN,TOTAL 0.3 mg/dL (0.0-1.0); BLOOD UREA NITROGEN 12 mg/dL (7-17); CALCIUM 6.7 mg/dL (8.4-10.2); CARBON DIOXIDE 21 mmol/L (22-30); CHLORIDE 114 mmol/L (98-107); GLUCOSE 87 mg/dL (74-106); SODIUM 139 mmol/L (137-145); TOTAL PROTEIN 5.7 gm/dL (6.4-8.2)
[2020-06-28 03:04] LABS: POTASSIUM 2.8 mmol/L (3.4-5.0)
[2020-06-28 03:12] LABS: TROPONIN-I < 0.012 ng/mL (0.000-0.035)
[2020-06-28] MEDS ORDERED: NAPROSYN500 MG PO (04:38)
[2020-06-28] MEDS ORDERED: MEDROL 4MG DOSPA4 MG PO (04:38)
[2020-06-28 05:28] VITALS: BP 114/70; PULSE 70
--- NOTE | 2020-06-28 15:22 | NUR ---
Plaster Form Maker received consult for patient who has visited the ED the last couple days and is self pay. SW consulted Mikaela, Financial Counselor who advised she has provided a Financial Assistance Application in the past and has mailed her another one. SW contacted patient to follow up from ED visit. Patient states she is "pissed off" because her narcotic prescription was not sent to [facility]. Patient states her steroid prescription was sent and she already picked that up but needs her narcotic prescription. BETSY collaborated with Keiry, Overhead Crane Operator who is familiar with patient and advised patient tried to call in earlier about the narcotic prescription. Keiry advised no narcotic prescription was ordered for patient. SW followed up with patient who was upset by this and wanted to talk with pneumatic hoist operator Overhead Crane Operator and pneumatic hoist operator, RN Viri. SW advised patient they were not at work at this time. Patient wanted SW to find out when they worked next and SW advised she could not do this. SW offered phone number for Risk Management but patient declined. SW spoke with patient about medications and primary care. Patient states she uses [facility] and obtains medications at [facility]. Patient states she used to see Dr. Soriano who no longer works in this area. SW spoke with patient about [facility] and the [facility] as patient does not have insurance. Patient states she has been to [facility] in the past and refuses to go back. Patient reports she has had three "depo" babies and worried that [facility] watered down her control shots. Patient states she may get in contact with [facility].
== END 2020-06-28 05:29 | disposition home or self-care (01) ==
LOC: COL.ER 02:18
PROVIDERS: Family Medicine
DX: R07.9 Chest pain, unspecified (principal); R51.9 Headache, unspecified; F41.0 Panic disorder [episodic paroxysmal anxiety]; F17.210 Nicotine dependence, cigarettes, uncomplicated; Z88.6 Allergy status to analgesic agent
CPT/HCPCS: J1885; J7030; J7512

== ENCOUNTER 2020-08-10 20:58 | Emergency (ER) | payer MEDICAID ==
[~2020-08-10] VITALS: Ht 170.2 cm; Wt 59.1 kg
[2020-08-10 21:04] VITALS: TEMP 98
[2020-08-10] MEDS ORDERED: MEDROL 4MG DOSPA4 MG PO (21:55)
[2020-08-10 21:59] VITALS: BP 116/80; PULSE 78
== END 2020-08-10 22:12 | disposition home or self-care (01) ==
LOC: COL.ER 20:58
DX: G89.29 Other chronic pain (principal); M25.512 Pain in left shoulder; Z88.6 Allergy status to analgesic agent

== ENCOUNTER 2020-08-15 21:45 | Emergency (ER) | payer MEDICAID ==
[~2020-08-15] VITALS: Ht 170.2 cm; Wt 63.6 kg
[2020-08-15 21:53] VITALS: TEMP 98.1
[2020-08-15 23:07] VITALS: BP 122/72; PULSE 78
== END 2020-08-15 23:09 | disposition home or self-care (01) ==
LOC: COL.ER 21:45
DX: S49.92XA Unspecified injury of left shoulder and upper arm, initial encounter (principal); F17.210 Nicotine dependence, cigarettes, uncomplicated; Z90.49 Acquired absence of other specified parts of digestive tract; Z88.6 Allergy status to analgesic agent; Z91.040 Latex allergy status; X50.1XXA Overexertion from prolonged static or awkward postures, initial encounter
CPT/HCPCS: J1885

== ENCOUNTER 2020-12-24 00:51 | Emergency (ER) | payer SELFPAY ==
[~2020-12-24] VITALS: Ht 170.2 cm; Wt 59.1 kg
[2020-12-24 01:54] LABS: BASO # 0.1 (0.0-0.2); BASO % 1.2 % (0.0-2.0); EOS # 0.2 (0.0-0.7); GRAN # 5.5 (1.4-6.5); GRAN % 54.5 % (42.2-75.2); LYMPH # 3.6 (1.2-3.4); LYMPH % 35.6 % (20.0-51.0); MEAN CELL VOLUME 80 fl (80.0-100.0); MEAN CORPUSCULAR HEMOGLOBIN 24 pg (27.0-31.0); MEAN CORPUSCULAR HGB CONC 30 g/dl (33.0-37.0); MEAN PLATELET VOLUME 8.6 fl (7.4-10.4); MONO # 0.7 (0.1-0.6); MONO % 6.5 % (1.7-9.3); PLATELET COUNT 431 K/mm3 (130-400); RED BLOOD COUNT 4.09 M/mm3 (4.10-5.30); REDCELL DISTRIBUTION WIDTH-CV 16.5 % (11.5-14.5)
[2020-12-24 02:07] LABS: HEMATOCRIT 32.9 % (37.0-47.0)
[2020-12-24 02:08] LABS: ALBUMIN 4.4 gm/dL (3.5-5.0); BILIRUBIN,TOTAL 0.2 mg/dL (0.0-1.0); CALCIUM 9.5 mg/dL (8.4-10.2); CREATININE, serum 0.62 (0.52-1.25); POTASSIUM 3.5 mmol/L (3.4-5.0); TOTAL PROTEIN 7.8 gm/dL (6.4-8.2)
[2020-12-24] MEDS ORDERED: PREDNISONE20 MG PO (03:24)
[2020-12-24 03:33] VITALS: BP 149/95; PULSE 76; TEMP 98.3
== END 2020-12-24 03:33 | disposition home or self-care (01) ==
LOC: COL.ER 00:51
PROVIDERS: Emergency Medicine
DX: J45.901 Unspecified asthma with (acute) exacerbation (principal); M79.7 Fibromyalgia; I10 Essential (primary) hypertension; F17.210 Nicotine dependence, cigarettes, uncomplicated; Z79.899 Other long term (current) drug therapy; Z20.822 Contact with and (suspected) exposure to COVID-19
CPT/HCPCS: J2930; J7030

== ENCOUNTER 2021-01-01 19:28 | Emergency (ER) | payer SELFPAY ==
[~2021-01-01] VITALS: Ht 170.2 cm; Wt 63.6 kg
[~2021-01-01 19:28] MED LIST changes: +PREDNISONE20 MG PO
[2021-01-01 19:36] VITALS: TEMP 98.1
[2021-01-01 20:32] LABS: BASO # 0.1 (0.0-0.2); BASO % 0.9 % (0.0-2.0); EOS # 0.1 (0.0-0.7); EOS % 1.1 % (0-4.0); GRAN # 5.8 (1.4-6.5); LYMPH # 2.8 (1.2-3.4); LYMPH % 28.7 % (20.0-51.0); MEAN CELL VOLUME 81 fl (80.0-100.0); MEAN CORPUSCULAR HEMOGLOBIN 25 pg (27.0-31.0); MEAN CORPUSCULAR HGB CONC 31 g/dl (33.0-37.0); MEAN PLATELET VOLUME 8.5 fl (7.4-10.4); MONO # 0.8 (0.1-0.6); PLATELET COUNT 367 K/mm3 (130-400); RED BLOOD COUNT 4.42 M/mm3 (4.10-5.30); REDCELL DISTRIBUTION WIDTH-CV 15.9 % (11.5-14.5)
[2021-01-01 20:45] LABS: ALBUMIN 4.8 gm/dL (3.5-5.0); BILIRUBIN,TOTAL 0.2 mg/dL (0.0-1.0); CALCIUM 9.5 mg/dL (8.4-10.2); CREATININE, serum 0.91 (0.52-1.25); POTASSIUM 3.7 mmol/L (3.4-5.0); TOTAL PROTEIN 8.5 gm/dL (6.4-8.2)
[2021-01-01 20:52] LABS: HEMATOCRIT 35.6 % (37.0-47.0)
[2021-01-01 21:25] VITALS: BP 127/86; PULSE 85
== END 2021-01-01 21:57 | disposition left against medical advice (07) ==
LOC: COL.ER 19:28
PROVIDERS: Personal Emergency Response Attendant
DX: B34.9 Viral infection, unspecified (principal); J45.909 Unspecified asthma, uncomplicated; M41.9 Scoliosis, unspecified; F17.210 Nicotine dependence, cigarettes, uncomplicated; Z20.822 Contact with and (suspected) exposure to COVID-19
CPT/HCPCS: J2405

== ENCOUNTER → 2021-01-26 | Outpatient (CLI) | payer SELFPAY ==
[2021-01-26 18:32] LABS: HIV 1/2 Antibodies Non-Reactive; HIV-1p24 Antigen Non-Reactive
== END ==
LOC: COL.LAB 16:11 → COL.ER 16:11
PROVIDERS: Emergency Medicine
DX: Z01.89 Encounter for other specified special examinations (principal)

== ENCOUNTER 2021-03-06 07:32 | Emergency (ER) | payer SELFPAY ==
[~2021-03-06] VITALS: Ht 170.2 cm; Wt 63.6 kg
[2021-03-06 08:14] VITALS: BP 107/73; TEMP 97.9
[2021-03-06 09:27] VITALS: PULSE 83
== END 2021-03-06 09:27 | disposition home or self-care (01) ==
LOC: COL.ER 07:32
DX: S43.102A Unspecified dislocation of left acromioclavicular joint, initial encounter (principal); B34.9 Viral infection, unspecified; F17.210 Nicotine dependence, cigarettes, uncomplicated; W18.30XA Fall on same level, unspecified, initial encounter